=== PATIENT | female | born 1975 | race Caucasian/White ===

== ENCOUNTER 2021-09-23 12:33 | Outpatient (REF) | payer OTHER, SELFPAY ==
[2021-09-23 13:44] LABS: Erythrocyte Sedimentation Rate 7 MM/HR (0-20)
[2021-09-23 13:53] LABS: Vitamin B12 221 pg/mL (200-900)
== END 2021-09-23 12:34 | disposition home or self-care (01) ==
LOC: HO.LAB 12:33
PROVIDERS: PCP Internal Medicine; Visit Provider Psychiatry & Neurology Neurology
DX: G31.84 Mild cognitive impairment of uncertain or unknown etiology (principal)
CPT/HCPCS: 36415; 82607; 85652